=== PATIENT | male | born 1970 ===

== ENCOUNTER 2021-03-29 05:42 | Inpatient (IN) | payer MEDICAID, SELFPAY ==
[2021-03-29 06:29] LABS: Hemoglobin 13.6 g/dL (14.0-18.0); Mean Corpuscular HGB CONC 31.9 g/dL (32.0-36.0); Mean Corpuscular Hemoglobin 28.3 pg (27.0-31.0); Mean Corpuscular Volume 88.7 fL (78.0-98.0); Platelet Count 311 thou/uL (130-400); RBC Distribution Width 13.3 % (11.5-14.5); Red Blood Cell (RBC) Count 4.81 mill/uL (4.70-6.10); White Blood Cell (WBC) Count 12.5 thou/uL (4.8-10.8)
[2021-03-29 06:30] LABS: ALT (SGPT) 12 U/L (8-55); AST (SGOT) 15 U/L (5-34); Albumin 4.1 g/dL (3.5-5.0); Alkaline Phosphatase 87 U/L (40-110); Anion Gap 17 mmol/L (10-20); BUN (Urea Nitrogen) 4 mg/dL (8.4-25.7); Band 1 % (5-11); Bilirubin, Total 0.3 mg/dL (0.2-1.2); Calc. Creatinine Clearance 0 mL/min (70-130); Carbon Dioxide 35 mmol/L (22-29); Chloride 93 mmol/L (98-107); Globulin 3.7 g/dL (2.4-3.5); Glucose 247 mg/dL (70-105); Lymphocytes 58 % (21-51); MDiff Complete? YES; Monocytes 8 % (0-10); Neutrophil 33 % (42-75); Potassium 3.6 mmol/L (3.5-5.1); Protein, Total 7.8 g/dL (6.0-8.3); Sodium 141 mmol/L (136-145)
[2021-03-29] MEDS ORDERED: cefTRIAXone\\ROCEPHIN 2 GM VIAL ONE (06:39)
[2021-03-29] MEDS ORDERED: Albuterol Sulfate 2.5 mg/0.5 ml Neb ONE (06:51)
[2021-03-29] MEDS ORDERED: Azithromycin 500 MG VIAL ONE (07:00)
[2021-03-29] MEDS ORDERED: Morphine 2 MG/ML VIAL ONE (07:14)
[2021-03-29] MEDS ORDERED: Ondansetron PF 4 MG/2 ML Vial ONE (07:15)
[2021-03-29 09:21] LABS: SARS-CoV-2 NAA Rapid Test Not Detected (NotDetected)
[2021-03-29] MEDS ORDERED: Iopamidol-370 76% 500 ML 1 ML ONE (10:19)
[2021-03-29] MEDS ORDERED: Dextrose 50% Abboject 50 ML SYRINGE SLOW IVP PRN (11:14)
[2021-03-29] MEDS ORDERED: Dextrose 5% in Water 1,000 ML IV PRN (11:14)
[2021-03-29] MEDS ORDERED: HumaLOG 300 UNITS/3 ML VIAL SC PRN ×2 (11:14)
[2021-03-29] MEDS ORDERED: Ascorbic Acid 500 mg Chewable Tablet PO SCH (11:15)
[2021-03-29] MEDS ORDERED: Enoxaparin Sodium 40 MG/0.4 ML SYRINGE SC SCH (11:15)
[2021-03-29] MEDS ORDERED: Cholecalciferol (Vitamin D3) 400 UNITS TAB PO SCH (11:15)
[2021-03-29] MEDS ORDERED: Zinc Sulfate 220 MG CAP PO SCH (11:15)
[2021-03-29 12:03] LABS: Hemoglobin A1c 5.3 % (4.0-6.0)
[2021-03-29 12:09] LABS: Troponin I Less than 0.010 ng/mL (< 0.028)
[2021-03-29] MEDS ORDERED: Acetylcysteine 20% 200 MG/ML 30 ML VIAL INH SCH (13:00)
[2021-03-29] MEDS ORDERED: Enoxaparin Sodium 40 MG/0.4 ML SYRINGE ONE (13:15)
[2021-03-29] MEDS ORDERED: Sodium Chloride 0.9% 1,000 ML IV SCH (14:15)
[2021-03-29 15:04] VITALS: BMI 26.4
[2021-03-29] MEDS: Famotidine/PF 20 mg/2ml Vial SLOW IVP SCH (21:54)
[2021-03-30 04:49] LABS: #Basophils 0.1 thou/uL (0.0-0.2); #Lymphocytes 2.6 thou/uL (1.20-3.40); #Monocytes 0.8 thou/uL (0.11-0.59); #Neutrophils 4.2 thou/uL (1.40-6.50); %Basophils 0.7 % (0.0-1.0); %Eosinophils 0.5 % (0.0-10.0); %Monocytes 10.9 % (0.0-10.0); %Neutrophils 53.9 % (42.0-75.0); Hemoglobin 12.3 g/dL (14.0-18.0); Mean Corpuscular Hemoglobin 28.4 pg (27.0-31.0); Mean Corpuscular Volume 88.8 fL (78.0-98.0); Mean Platelet Volume 7.5 fL (7.4-10.4); Platelet Count 270 thou/uL (130-400); RBC Distribution Width 13.3 % (11.5-14.5); Red Blood Cell (RBC) Count 4.33 mill/uL (4.70-6.10); White Blood Cell (WBC) Count 7.7 thou/uL (4.8-10.8)
[2021-03-30] MEDS ORDERED: Azithromycin 500 MG in Sodium Chloride 0.9% 250 ML 250 ML IVPB SCH (07:00)
[2021-03-30] MEDS ORDERED: cefTRIAXone\\ROCEPHIN 2 GM in Sodium Chloride 0.9% 100 ML IVPB SCH (07:00)
[2021-03-30] MEDS ORDERED: Acetaminophen 650 MG Suppository PR PRN (08:05)
[2021-03-30] MEDS: Enoxaparin Sodium 40 MG/0.4 ML SYRINGE SC SCH (09:04)
[2021-03-30] MEDS: Cholecalciferol (Vitamin D3) 400 UNITS TAB PO SCH (09:04)
[2021-03-30] MEDS: Zinc Sulfate 220 MG CAP PO SCH (09:04)
[2021-03-30] MEDS: Ascorbic Acid 500 mg Chewable Tablet PO SCH (09:05)
[2021-03-30] MEDS: Famotidine/PF 20 mg/2ml Vial SLOW IVP SCH ×2 (09:05→20:28)
[2021-03-30] MEDS: HYDROcodone/Acetaminophen 5/325 mg Tablet PO PRN ×2 (09:05→20:28)
[2021-03-30] MEDS: Budesonide 0.5 MG/2 ML NEB NEB SCH (18:19)
[2021-03-30] MEDS: Ivabradine 5 MG TAB PO SCH (18:34)
[2021-03-30] MEDS: Benzonatate 100 MG CAP PO PRN (20:27)
[2021-03-30] MEDS: Tamsulosin HCl 0.4 MG CAP PO SCH (20:27)
[2021-03-30] MEDS: Gabapentin 100 MG CAP PO SCH (20:29)
[2021-03-30] MEDS: Metoprolol Tartrate 25 MG TAB PO SCH (20:29)
[2021-03-30] MEDS: cefTRIAXone\\ROCEPHIN 2 GM in Sodium Chloride 0.9% 100 ML IVPB SCH (23:47)
[2021-03-31] MEDS: HYDROcodone/Acetaminophen 5/325 mg Tablet PO PRN ×2 (03:55→21:30)
[2021-03-31] MEDS: Benzonatate 100 MG CAP PO PRN ×3 (03:55→21:30)
[2021-03-31] MEDS: Ivabradine 5 MG TAB PO SCH ×2 (05:30→17:34)
[2021-03-31] MEDS: cefTRIAXone\\ROCEPHIN 2 GM in Sodium Chloride 0.9% 100 ML IVPB SCH (05:39)
[2021-03-31] MEDS: Budesonide 0.5 MG/2 ML NEB NEB SCH ×2 (06:42→18:31)
[2021-03-31 08:50] LABS: BUN (Urea Nitrogen) Less than 4 mg/dL (8.4-25.7); Calc. Creatinine Clearance 129 mL/min (70-130); Calcium 9.3 mg/dL (7.8-10.44); Glucose 127 mg/dL (70-105)
[2021-03-31 09:00] LABS: Anion Gap 19 mmol/L (10-20); Carbon Dioxide 33 mmol/L (22-29); Chloride 95 mmol/L (98-107); Potassium 3.8 mmol/L (3.5-5.1); Sodium 143 mmol/L (136-145)
[2021-03-31 09:04] LABS: #Basophils 0.1 thou/uL (0.0-0.2); #Eosinphils 0.2 thou/uL (0.0-0.7); #Lymphocytes 2.2 thou/uL (1.20-3.40); #Monocytes 0.7 thou/uL (0.11-0.59); #Neutrophils 4.1 thou/uL (1.40-6.50); %Basophils 0.7 % (0.0-1.0); %Eosinophils 3.1 % (0.0-10.0); %Lymphocytes 30.1 % (21.0-51.0); %Monocytes 9.7 % (0.0-10.0); %Neutrophils 56.3 % (42.0-75.0); Hemoglobin 12.7 g/dL (14.0-18.0); Mean Corpuscular HGB CONC 32.2 g/dL (32.0-36.0); Mean Corpuscular Hemoglobin 28.8 pg (27.0-31.0); Mean Corpuscular Volume 89.5 fL (78.0-98.0); Mean Platelet Volume 6.9 fL (7.4-10.4); Platelet Count 274 thou/uL (130-400); RBC Distribution Width 13.3 % (11.5-14.5); Red Blood Cell (RBC) Count 4.41 mill/uL (4.70-6.10); White Blood Cell (WBC) Count 7.2 thou/uL (4.8-10.8)
[2021-03-31] MEDS: Cholecalciferol (Vitamin D3) 400 UNITS TAB PO SCH (09:31)
[2021-03-31] MEDS: Enoxaparin Sodium 40 MG/0.4 ML SYRINGE SC SCH (09:32)
[2021-03-31] MEDS: Gabapentin 100 MG CAP PO SCH ×2 (09:32→21:30)
[2021-03-31] MEDS: Ascorbic Acid 500 mg Chewable Tablet PO SCH (09:32)
[2021-03-31] MEDS: Famotidine/PF 20 mg/2ml Vial SLOW IVP SCH ×2 (09:33→21:31)
[2021-03-31] MEDS: Metoprolol Tartrate 25 MG TAB PO SCH ×2 (09:33→21:30)
[2021-03-31] MEDS: Zinc Sulfate 220 MG CAP PO SCH (09:33)
[2021-03-31] MEDS: Tamsulosin HCl 0.4 MG CAP PO SCH (21:30)
[2021-04-01] MEDS: cefTRIAXone\\ROCEPHIN 2 GM in Sodium Chloride 0.9% 100 ML IVPB SCH (05:21)
[2021-04-01] MEDS: Ivabradine 5 MG TAB PO SCH ×2 (05:24→16:50)
[2021-04-01] MEDS: Budesonide 0.5 MG/2 ML NEB NEB SCH ×2 (07:07→19:36)
[2021-04-01] MEDS: Metoprolol Tartrate 25 MG TAB PO SCH ×2 (08:56→20:13)
[2021-04-01] MEDS: Zinc Sulfate 220 MG CAP PO SCH (08:56)
[2021-04-01] MEDS: Ascorbic Acid 500 mg Chewable Tablet PO SCH (08:56)
[2021-04-01] MEDS: Enoxaparin Sodium 40 MG/0.4 ML SYRINGE SC SCH (08:57)
[2021-04-01] MEDS: Amoxicillin/Potassium Clav 875 MG TAB PO SCH ×2 (08:57→20:13)
[2021-04-01] MEDS: Gabapentin 100 MG CAP PO SCH ×2 (08:57→20:13)
[2021-04-01] MEDS: Famotidine/PF 20 mg/2ml Vial SLOW IVP SCH ×2 (08:57→20:13)
[2021-04-01] MEDS: Cholecalciferol (Vitamin D3) 400 UNITS TAB PO SCH (08:57)
[2021-04-01] MEDS: Tamsulosin HCl 0.4 MG CAP PO SCH (20:13)
[2021-04-01] MEDS: HYDROcodone/Acetaminophen 5/325 mg Tablet PO PRN (20:20)
[2021-04-02] MEDS: Budesonide 0.5 MG/2 ML NEB NEB SCH (07:12)
[2021-04-02] MEDS: Zinc Sulfate 220 MG CAP PO SCH (09:09)
[2021-04-02] MEDS: Cholecalciferol (Vitamin D3) 400 UNITS TAB PO SCH (09:09)
[2021-04-02] MEDS: Famotidine/PF 20 mg/2ml Vial SLOW IVP SCH (09:09)
[2021-04-02] MEDS: Gabapentin 100 MG CAP PO SCH (09:09)
[2021-04-02] MEDS: Enoxaparin Sodium 40 MG/0.4 ML SYRINGE SC SCH (09:09)
[2021-04-02] MEDS: Amoxicillin/Potassium Clav 875 MG TAB PO SCH (09:09)
[2021-04-02] MEDS: Ivabradine 5 MG TAB PO SCH (09:10)
[2021-04-02] MEDS: Ascorbic Acid 500 mg Chewable Tablet PO SCH (09:10)
[2021-04-02] MEDS: Metoprolol Tartrate 25 MG TAB PO SCH (09:10)
[2021-04-02 13:11] VITALS: BP 121/76; TEMP 98.4
== END 2021-04-02 13:34 | disposition home or self-care (01) | DRG 205 ==
LOC: ERS 05:42 → ERHOLD 08:14 → 2NO 14:18 → IMCU/EMU 17:16 → 2NO 18:35 → T4-A 03-31 20:55
PROVIDERS: ADMIT Internal Medicine; ATTEND Internal Medicine
PROC: 0BC68ZZ Extirpation of Matter from Right Lower Lobe Bronchus, Via Natural or Artificial Opening Endoscopic (ICD-10-PCS; principal; 2021-03-29)
PROC: 0BC58ZZ Extirpation of Matter from Right Middle Lobe Bronchus, Via Natural or Artificial Opening Endoscopic (ICD-10-PCS; 2021-03-29)
PROC: 0BP1XFZ Removal of Tracheostomy Device from Trachea, External Approach (ICD-10-PCS; 2021-03-30)
PROC: 0DP6XUZ Removal of Feeding Device from Stomach, External Approach (ICD-10-PCS; 2021-03-31)
DX: T17.590A Other foreign object in bronchus causing asphyxiation, initial encounter (principal); J96.21 Acute and chronic respiratory failure with hypoxia; I82.619 Acute embolism and thrombosis of superficial veins of unspecified upper extremity; Z20.822 Contact with and (suspected) exposure to COVID-19; F41.9 Anxiety disorder, unspecified; F32.9 Major depressive disorder, single episode, unspecified; D64.9 Anemia, unspecified; X58.XXXA Exposure to other specified factors, initial encounter; E11.42 Type 2 diabetes mellitus with diabetic polyneuropathy; Z86.16 Personal history of COVID-19; Z79.51 Long term (current) use of inhaled steroids; Z79.84 Long term (current) use of oral hypoglycemic drugs; Z79.899 Other long term (current) drug therapy; Z93.0 Tracheostomy status
CPT/HCPCS: 0240U; 36415; 36416; 71045; 71275; 74230; 80048; 80053; 83036; 83605; 83880; 84145; 84484; 85007; 85025; 85027; 87040; 93005; 94640; 94667; 94668; 96365; 96367; 96375; J0456; J0696; J1650; J2270; J2405; J3490; J7050; J7611; J7620; J7626; Q9967; S0028